=== PATIENT | female | born 1940 | race Caucasian/White ===

== ENCOUNTER 2016-02-20 17:03 | Inpatient (IN) | payer MEDICARE, BC ==
[~2016-02-20] VITALS: Ht 160 cm; Wt 59.4 kg
[2016-02-20] MEDS ORDERED: OPTIRAY 350 100 ML VIAL HMH IV ONE (17:04)
[2016-02-21] MEDS ORDERED: ONDANSETRON 4 MG VIAL ONE (00:46)
[2016-02-21] MEDS ORDERED: MORPHINE 4 MG/ML SYR ONE (00:46)
[2016-02-21] MEDS ORDERED: SODIUM CHLORIDE 0.9% 1,000 ML ONE (00:46)
[2016-02-21] MEDS ORDERED: PIPER/TAZO 3.375 GM PYXIS ONE (01:17)
[2016-02-21] MEDS ORDERED: SODIUM CHLORIDE 0.9% 100 ML IV ONE (01:17)
[2016-02-21] MEDS: SODIUM CHLOR 0.9% W/KCL 20MEQ 1,000 ML IV SCH ×2 (02:47→16:53)
[2016-02-21 03:01] VITALS: BP_SYST 102; BP_SYST 116; RESP 18; TEMP 98.8
[2016-02-21 03:04] VITALS: Ht 160 cm; Wt 59.4 kg
[2016-02-21] MEDS: ACETAMINOPHEN 325 MG TAB PO PRN (03:40)
[2016-02-21 07:17] VITALS: BP_SYST 102; RESP 18; TEMP 97
[2016-02-21] MEDS ORDERED: MORPHINE 2 MG/ML SYR IV PRN (07:50)
[2016-02-21] MEDS ORDERED: ONDANSETRON 4 MG VIAL IV PRN (07:50)
[2016-02-21] MEDS ORDERED: MORPHINE 4 MG/ML SYR IV PRN (07:55)
[2016-02-21] MEDS: METRONIDAZOLE 250 MG 500 MG in SODIUM CHLORIDE 0.9% 100 ML IV SCH ×3 (09:27→23:21)
[2016-02-21] MEDS: LEVOFLOXACIN 500 MG/100 ML 100 ML IV SCH (10:59)
[2016-02-21 11:36] VITALS: BP_SYST 107; RESP 16; TEMP 98.2
[2016-02-21] MEDS: MORPHINE 2 MG/ML SYR IV PRN ×2 (14:25→23:22)
[2016-02-21 15:20] VITALS: BP_SYST 102; RESP 18; TEMP 98.3
[2016-02-21 19:27] VITALS: BP_SYST 104; RESP 18; TEMP 98.2
[2016-02-21 23:14] VITALS: BP_SYST 102; RESP 18; TEMP 100
[2016-02-22 03:44] VITALS: BP_SYST 103; RESP 18; TEMP 99.5
[2016-02-22] MEDS: SODIUM CHLOR 0.9% W/KCL 20MEQ 1,000 ML IV SCH ×2 (06:34→22:36)
[2016-02-22 07:23] VITALS: BP_SYST 106; RESP 24; TEMP 98.3
[2016-02-22] MEDS: METRONIDAZOLE 250 MG 500 MG in SODIUM CHLORIDE 0.9% 100 ML IV SCH ×3 (08:39→23:58)
[2016-02-22] MEDS: LEVOFLOXACIN 500 MG/100 ML 100 ML IV SCH (09:20)
[2016-02-22 11:09] VITALS: BP_SYST 112; RESP 20; TEMP 98.5
[2016-02-22 15:01] VITALS: BP_SYST 103; RESP 20; TEMP 98.3
[2016-02-22 19:46] VITALS: BP_SYST 117; RESP 16; TEMP 98.4
[2016-02-22] MEDS: ENOXAPARIN 40 MG/0.4 ML SYR SUBQ SCH (20:28)
[2016-02-22] MEDS: MORPHINE 2 MG/ML SYR IV PRN ×2 (21:24→21:26)
[2016-02-22 22:36] VITALS: BP_SYST 113; RESP 18; TEMP 98.5
[2016-02-23 02:40] VITALS: BP_SYST 121; RESP 18; TEMP 98
[2016-02-23 07:01] VITALS: BP_SYST 116; RESP 20; TEMP 98.4
[2016-02-23] MEDS: ENOXAPARIN 40 MG/0.4 ML SYR SUBQ SCH ×3 (09:00→16:58)
[2016-02-23] MEDS: METRONIDAZOLE 250 MG 500 MG in SODIUM CHLORIDE 0.9% 100 ML IV SCH ×2 (09:08→16:51)
[2016-02-23] MEDS: LEVOFLOXACIN 500 MG/100 ML 100 ML IV SCH (10:00)
[2016-02-23] MEDS: ACETAMINOPHEN 325 MG TAB PO PRN ×2 (10:00→23:03)
[2016-02-23 11:28] VITALS: BP_SYST 109; RESP 20; TEMP 97.4
[2016-02-23] MEDS: SODIUM CHLOR 0.9% W/KCL 20MEQ 1,000 ML IV SCH (14:16)
[2016-02-23 19:21] VITALS: BP_SYST 104; RESP 18; TEMP 98.2
[2016-02-23 22:54] VITALS: BP_SYST 151; RESP 18; TEMP 98.2
[2016-02-24] VITALS (7 sets, daily range): BP systolic 107–132; RESP 18; TEMP 97.8–98.7
[2016-02-24] MEDS: METRONIDAZOLE 250 MG 500 MG in SODIUM CHLORIDE 0.9% 100 ML IV SCH ×3 (00:37→17:11)
[2016-02-24] MEDS: SODIUM CHLOR 0.9% W/KCL 20MEQ 1,000 ML IV SCH ×2 (04:06→19:45)
[2016-02-24] MEDS: LEVOFLOXACIN 500 MG/100 ML 100 ML IV SCH (09:18)
[2016-02-24] MEDS: NYSTATIN 500,000 UNITS/5 ML SUSP SWISH.SWAL SCH (22:16)
[2016-02-25] MEDS: METRONIDAZOLE 250 MG 500 MG in SODIUM CHLORIDE 0.9% 100 ML IV SCH ×3 (00:32→17:25)
[2016-02-25] MEDS: ACETAMINOPHEN 325 MG TAB PO PRN ×3 (00:33→22:34)
[2016-02-25 05:06] VITALS: BP_SYST 112; RESP 18; TEMP 98.2
[2016-02-25 07:52] VITALS: BP_SYST 117; RESP 18; TEMP 98
[2016-02-25] MEDS: NYSTATIN 500,000 UNITS/5 ML SUSP SWISH.SWAL SCH ×4 (09:30→20:13)
[2016-02-25 11:51] VITALS: BP_SYST 105; RESP 18; TEMP 98.7
[2016-02-25] MEDS: LEVOFLOXACIN 500 MG/100 ML 100 ML IV SCH (11:59)
[2016-02-25] MEDS: SODIUM CHLOR 0.9% W/KCL 20MEQ 1,000 ML IV SCH (14:06)
[2016-02-25 15:51] VITALS: BP_SYST 127; RESP 18; TEMP 98
[2016-02-25 19:32] VITALS: BP_SYST 118; RESP 18; TEMP 98.3
[2016-02-25 23:30] VITALS: BP_SYST 121; RESP 18; TEMP 98.2
[2016-02-26] MEDS: METRONIDAZOLE 250 MG 500 MG in SODIUM CHLORIDE 0.9% 100 ML IV SCH ×2 (00:17→09:58)
[2016-02-26 02:50] VITALS: BP_SYST 118; RESP 18; TEMP 97.7
[2016-02-26] MEDS: SODIUM CHLOR 0.9% W/KCL 20MEQ 1,000 ML IV SCH (06:21)
[2016-02-26 07:18] VITALS: BP_SYST 119; RESP 16; TEMP 97.7
[2016-02-26] MEDS: NYSTATIN 500,000 UNITS/5 ML SUSP SWISH.SWAL SCH ×3 (09:57→18:11)
[2016-02-26 10:52] VITALS: BP_SYST 130; RESP 18; TEMP 98.2
[2016-02-26] MEDS: LEVOFLOXACIN 500 MG/100 ML 100 ML IV SCH (13:13)
[2016-02-26] MEDS ORDERED: LEVOFLOXACIN 500 MG TAB PO SCH (13:15)
[2016-02-26 14:53] VITALS: BP_SYST 114; RESP 18; TEMP 97.9
[2016-02-26] MEDS ORDERED: METRONIDAZOLE 500 MG TAB PO SCH (16:00)
[2016-02-26 18:42] VITALS: BP_SYST 114; BP_SYST 117; RESP 18; TEMP 97.9; TEMP 98.3
[2016-02-26 18:54] VITALS: BP_SYST 117; RESP 18; TEMP 98.3
== END 2016-02-26 19:10 | disposition home or self-care (01) | DRG 392 ==
LOC: ENRESERVTM → ENRESERVDT → CANRESERV → ER 17:03 → ENPENDDIS 02-21 01:12 → EMR 02-21 01:12 → 4NT 02-21 02:51
PROVIDERS: ADMIT Internal Medicine; ATTEND Internal Medicine
CPT/HCPCS: 36415; 74177; 80048; 80053; 81003; 83605; 83690; 85025; 96361; 96365; 96375